=== PATIENT | female | born 1955 ===

== ENCOUNTER 2017-09-10 06:03 | Inpatient (IN) | payer MEDICARE, OTHER ==
[2017-09-02 10:59] VITALS: BMI 31.6
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
[2017-09-10] MEDS ORDERED: Absorbable Gelatin Sponge Size 100 ONE (07:31)
[2017-09-10] MEDS ORDERED: Bupivacaine HCl 0.5% PF (10 ml) Inj ONE ×3 (07:32)
[2017-09-10] MEDS ORDERED: Thrombin Topical 5,000 IU Spray Kit ONE (07:33)
[2017-09-10] MEDS ORDERED: Propofol 10 mg/ml Inj (20 ML) ONE ×3 (07:41→11:20)
[2017-09-10] MEDS ORDERED: Midazolam 2 MG/2 ML VIAL ONE (07:41)
[2017-09-10] MEDS ORDERED: Rocuronium 10 mg/ml (5 ml) ONE (07:41)
[2017-09-10] MEDS ORDERED: Remifentanil 1 mg/3 ml Vial IV ONE (07:46)
[2017-09-10] MEDS ORDERED: Propofol 10 mg/ml 1,000 MG/100 ML VIAL ONE ×2 (07:47)
[2017-09-10] MEDS ORDERED: Bupivacaine Liposomal Inj 20 ml INFIL ONE (07:47)
[2017-09-10] MEDS ORDERED: Bacitracin Ointment 30 GM TUBE ONE (07:52)
[2017-09-10] MEDS ORDERED: Vancomycin 1 g Inj ONE (07:52)
[2017-09-10] MEDS ORDERED: Sodium Chloride 0.9% 40 ML IV ONE (07:52)
[2017-09-10] MEDS ORDERED: Bacitracin 50,000 UNIT in Sodium Chloride 0.9% Irrig 1,000 ML IR SCH (08:00)
[2017-09-10] MEDS ORDERED: Lidocaine 1%/Epinephrine 1:100000 30 ml vial IJ ONE ×2 (08:00)
[2017-09-10] MEDS ORDERED: Phenylephrine 10 mg/ml Inj ONE (08:03)
[2017-09-10] MEDS ORDERED: Vancomycin 1 gm/D5W 200 ml 1 GM/200 ML BAG IVPB ONE (08:22)
[2017-09-10] MEDS ORDERED: Lactated Ringer's 1,000 ML IV ONE ×5 (09:15→10:00)
[2017-09-10] MEDS ORDERED: Labetalol 25mg/5ml Syringe ONE (13:08)
[2017-09-10] MEDS ORDERED: Morphine 4 MG/ML VIAL ONE (13:08)
[2017-09-10] MEDS ORDERED: DiphenhydrAMINE 50 mg/ml Inj IVP PRN (13:26)
[2017-09-10] MEDS ORDERED: Morphine Monoject Barrel PCA 1mg/ml IV PRN (13:26)
[2017-09-10] MEDS: HYDROmorphone 0.5 mg/0.5 ml ISec IVP PRN ×3 (14:35→15:55)
--- NOTE | 2017-09-10 14:35 | RAD ---
PROCEDURE: Intraoperative Fluoroscopy. HISTORY: LUMBAR STENOSIS,DISC DISPLACEMENT FINDINGS: Fluoroscopic assistance was provided for lumbar laminectomy and fusion. Total fluoroscopic time (continuous mode) utilized during the procedure: 52.2 seconds. Please refer to the operative report 4.0
[2017-09-10] MEDS: Potassium Ch 20mEq in D5-1/2NS 1,000 ML IV SCH (15:10)
[2017-09-11] MEDS: Potassium Ch 20mEq in D5-1/2NS 1,000 ML IV SCH ×3 (03:25→16:42)
--- NOTE | 2017-09-11 09:28 | CP.PCM.PN ---
Subjective - Date & Time of Evaluation Date of Evaluation: 09/11/17 Time of Evaluation: 09:26 - Subjective Subjective: POD 1 doing well c/o inc pain 5/ Ble's dsg c and d P oob phys tx cont [employer] Objective - Vital Signs/Intake and Output Vital Signs (last 24 hours): Temp Pulse Resp BP Pulse Ox 98.1 F 116 H 22 132/77 93 L 09/11/17 07:25 09/11/17 07:25 09/11/17 07:25 09/11/17 07:25 09/11/17 07:25 Intake and Output: 09/11/17 09/11/17 06:59 18:59 Intake Total 450 Output Total 475 Balance -25 - Medications Medications: Current Medications Acetaminophen (Tylenol 325mg Tab) 650 mg PO Q6 PRN PRN Reason: Fever >100.4 F Diphenhydramine HCl (Benadryl) 25 mg IVP Q6 PRN PRN Reason: Itching / Pruritus Docusate Sodium (Colace) 100 mg PO BID [facility] Last Admin: 09/10/17 19:38 Dose: 100 mg Ferrous Sulfate (Feosol) 325 mg PO DAILY [facility] Potassium Chloride/Dextrose/Sod Cl (Potassium Chl 20 Meq In D5-1/2ns) 1,000 mls @ 90 mls/hr IV .Q11H7M [facility] Last Admin: 09/11/17 04:21 Dose: 90 mls/hr Metoclopramide HCl (Reglan) 5 mg IVP Q6H PRN PRN Reason: Nausea/Vomiting Morphine Sulfate/Sodium Chloride (Morphine Data Integrity Analyst Monoject Barrel) 20 mg IV Q4H PRN; Protocol PRN Reason: Pain, severe (8-10) Stop: 09/11/17 13:26 Last Admin: 09/10/17 15:10 Dose: 20 mg Ondansetron HCl (Zofran Inj) 4 mg IVP DAILY@ONCE PRN PRN Reason: Nausea/Vomiting Ondansetron HCl (Zofran Inj) 4 mg IVP Q8H PRN PRN Reason: Nausea/Vomiting
[2017-09-11] MEDS ORDERED: Morphine Monoject Barrel PCA 1mg/ml IV PRN (14:54)
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
--- NOTE | 2017-09-12 12:01 | CP.PCM.PN ---
Subjective - Date & Time of Evaluation Date of Evaluation: 09/12/17 Time of Evaluation: 12:00 - Subjective Subjective: Pt doing well usual op site pain starting to ambulate c/o some numbnewss in feet exam st 5/5 no dec to pin ojk to transfer o rehab when bed available Objective - Vital Signs/Intake and Output Vital Signs (last 24 hours): Temp Pulse Resp BP Pulse Ox 98.7 F 109 H 20 138/75 95 09/12/17 07:25 09/12/17 07:25 09/12/17 07:25 09/12/17 07:25 09/12/17 07:25 Intake and Output: 09/12/17 09/12/17 06:59 18:59 Intake Total 2075 Output Total 1350 Balance 725 - Medications Medications: Current Medications Acetaminophen (Tylenol 325mg Tab) 650 mg PO Q6 PRN PRN Reason: Fever >100.4 F Diphenhydramine HCl (Benadryl) 25 mg IVP Q6 PRN PRN Reason: Itching / Pruritus Last Admin: 09/11/17 22:42 Dose: 25 mg Docusate Sodium (Colace) 100 mg PO BID [facility] Last Admin: 09/12/17 10:31 Dose: 100 mg Ferrous Sulfate (Feosol) 325 mg PO DAILY [facility] Last Admin: 09/12/17 10:31 Dose: 325 mg Potassium Chloride/Dextrose/Sod Cl (Potassium Chl 20 Meq In D5-1/2ns) 1,000 mls @ 90 mls/hr IV .Q11H7M [facility] Last Admin: 09/11/17 16:42 Dose: 90 mls/hr Metoclopramide HCl (Reglan) 5 mg IVP Q6H PRN PRN Reason: Nausea/Vomiting Morphine Sulfate/Sodium Chloride (Morphine Door To Door Selling Distributor Monoject Barrel) 1 mg IV Q4H PRN ; Protocol PRN Reason: Pain, severe (8-10) Last Admin: 09/11/17 15:11 Dose: 1 mg Ondansetron HCl (Zofran Inj) 4 mg IVP DAILY@ONCE PRN PRN Reason: Nausea/Vomiting Ondansetron HCl (Zofran Inj) 4 mg IVP Q8H PRN PRN Reason: Nausea/Vomiting
[2017-09-12] MEDS: Oxycodone/Acetaminophen 5/325 mg Tab PO PRN ×2 (12:49→18:04)
[2017-09-12] MEDS: oxyCODONE 20 mg ER Tab (oxyCONTIN) PO SCH (21:43)
[2017-09-13] MEDS: Oxycodone/Acetaminophen 5/325 mg Tab PO PRN ×2 (05:46→13:15)
[2017-09-13] MEDS: oxyCODONE 20 mg ER Tab (oxyCONTIN) PO SCH ×2 (09:32→21:52)
--- NOTE | 2017-09-13 14:38 | CP.PCM.PN ---
Subjective - Date & Time of Evaluation Date of Evaluation: 09/13/17 Time of Evaluation: 14:37 - Subjective Subjective: POD 3 c/o n/v some dysethesia r leg ambulating with PT neuro intact await tr to rehab Objective - Vital Signs/Intake and Output Vital Signs (last 24 hours): Temp Pulse Resp BP Pulse Ox 98 F 98 H 19 134/77 96 09/13/17 07:20 09/13/17 07:20 09/13/17 07:20 09/13/17 07:20 09/13/17 07:20 Intake and Output: 09/13/17 09/13/17 06:59 18:59 Intake Total 360 Output Total 1000 Balance -640 - Medications Medications: Current Medications Acetaminophen (Tylenol 325mg Tab) 650 mg PO Q6 PRN PRN Reason: Fever >100.4 F Diphenhydramine HCl (Benadryl) 25 mg IVP Q6 PRN PRN Reason: Itching / Pruritus Last Admin: 09/11/17 22:42 Dose: 25 mg Docusate Sodium (Colace) 100 mg PO BID [facility] Last Admin: 09/13/17 09:33 Dose: 100 mg Ferrous Sulfate (Feosol) 325 mg PO DAILY [facility] Last Admin: 09/13/17 09:31 Dose: 325 mg Metoclopramide HCl (Reglan) 5 mg IVP Q6H PRN PRN Reason: Nausea/Vomiting Ondansetron HCl (Zofran Inj) 4 mg IVP DAILY@ONCE PRN PRN Reason: Nausea/Vomiting Ondansetron HCl (Zofran Inj) 4 mg IVP Q8H PRN PRN Reason: Nausea/Vomiting Oxycodone HCl (Oxycontin Extended Release Tab) 20 mg PO Q12 [facility] Last Admin: 09/13/17 09:32 Dose: 20 mg Oxycodone/Acetaminophen (Percocet 5/325 Mg Tab) 1 tab PO Q4H PRN PRN Reason: Pain, Mild (1-3) Stop: 09/15/17 12:16 Last Admin: 09/13/17 13:15 Dose: 1 tab
[2017-09-13] MEDS ORDERED: Magnesium Hydroxide Susp 30 ml UD PO ONE ×2 (16:00→17:45)
[2017-09-14] MEDS: Oxycodone/Acetaminophen 5/325 mg Tab PO PRN (06:41)
[2017-09-14] MEDS ORDERED: Bacitracin Ointment 30 GM TUBE TOP SCH (10:00)
[2017-09-14] MEDS: oxyCODONE 20 mg ER Tab (oxyCONTIN) PO SCH ×2 (10:00→22:00)
[2017-09-14] MEDS: Bacitracin Ointment 30 GM TUBE TOP SCH (10:00)
[2017-09-15] MEDS: Oxycodone/Acetaminophen 5/325 mg Tab PO PRN (04:35)
[2017-09-15] MEDS: oxyCODONE 20 mg ER Tab (oxyCONTIN) PO SCH ×2 (10:07→22:53)
[2017-09-15] MEDS: Bacitracin Ointment 30 GM TUBE TOP SCH (10:08)
--- NOTE | 2017-09-15 11:24 | CP.PCM.PN ---
Subjective - Date & Time of Evaluation Date of Evaluation: 09/15/17 Time of Evaluation: 11:23 - Subjective Subjective: POD 5 ambulating to br still c/o lack bm pain ok neuro stable P trans to rehab am fleet enema Objective - Vital Signs/Intake and Output Vital Signs (last 24 hours): Temp Pulse Resp BP Pulse Ox 97.9 F 93 H 20 139/79 94 L 09/15/17 00:00 09/15/17 00:00 09/15/17 00:00 09/15/17 00:00 09/15/17 00:00 Intake and Output: 09/15/17 09/15/17 06:59 18:59 Intake Total 240 Balance 240 - Medications Medications: Current Medications Acetaminophen (Tylenol 325mg Tab) 650 mg PO Q6 PRN PRN Reason: Fever >100.4 F Bacitracin (Bacitracin) 0 gm TOP DAILY [facility] Last Admin: 09/15/17 10:08 Dose: 1 appl Bisacodyl (Dulcolax) 10 mg [place] Q12H PRN PRN Reason: Constipation Last Admin: 09/14/17 11:26 Dose: 10 mg Diphenhydramine HCl (Benadryl) 25 mg IVP Q6 PRN PRN Reason: Itching / Pruritus Last Admin: 09/11/17 22:42 Dose: 25 mg Docusate Sodium (Colace) 100 mg PO BID [facility] Last Admin: 09/15/17 10:08 Dose: 100 mg Ferrous Sulfate (Feosol) 325 mg PO DAILY [facility] Last Admin: 09/15/17 10:08 Dose: 325 mg Metoclopramide HCl (Reglan) 5 mg IVP Q6H PRN PRN Reason: Nausea/Vomiting Last Admin: 09/13/17 14:49 Dose: 5 mg Ondansetron HCl (Zofran Inj) 4 mg IVP DAILY@ONCE PRN PRN Reason: Nausea/Vomiting Ondansetron HCl (Zofran Inj) 4 mg IVP Q8H PRN PRN Reason: Nausea/Vomiting Oxycodone HCl (Oxycontin Extended Release Tab) 20 mg PO Q12 [facility] Last Admin: 09/15/17 10:07 Dose: 20 mg Oxycodone/Acetaminophen (Percocet 5/325 Mg Tab) 1 tab PO Q4H PRN PRN Reason: Pain, Mild (1-3) Stop: 09/15/17 12:16 Last Admin: 09/15/17 04:35 Dose: 1 tab Sodium Phosphate (Fleet Enema) 135 ml [place] Q24H PRN PRN Reason: Constipation Last Admin: 09/15/17 03:40 Dose: 135 ml
[2017-09-15] MEDS: Aluminum Hydroxide/Magnesium Hydroxide Susp (30 mL) PO PRN (18:03)
[2017-09-16] MEDS ORDERED: Phenylephrine 10 mg/ml Inj ONE (08:01)
[2017-09-16] MEDS: oxyCODONE 20 mg ER Tab (oxyCONTIN) PO SCH ×2 (09:12→22:03)
[2017-09-16] MEDS: Bacitracin Ointment 30 GM TUBE TOP SCH (09:42)
--- NOTE | 2017-09-16 10:00 | CP.PCM.PN ---
Subjective - Date & Time of Evaluation Date of Evaluation: 09/16/17 Time of Evaluation: 10:00 - Subjective Subjective: stable awaiting rehab transfer Objective - Vital Signs/Intake and Output Vital Signs (last 24 hours): Temp Pulse Resp BP Pulse Ox 98.8 F 95 H 20 150/74 95 09/16/17 07:15 09/16/17 07:15 09/16/17 07:15 09/16/17 07:15 09/16/17 07:15 Intake and Output: 09/16/17 09/16/17 06:59 18:59 Intake Total 510 Balance 510 - Medications Medications: Current Medications Acetaminophen (Tylenol 325mg Tab) 650 mg PO Q6 PRN PRN Reason: Fever >100.4 F Al Hydrox/Mg Hydrox/Simethicone (Maalox 30 Ml) 30 ml PO Q6 PRN Last Admin: 09/15/17 18:03 Dose: 30 ml Bacitracin (Bacitracin) 0 gm TOP DAILY [facility] Last Admin: 09/16/17 09:42 Dose: 1 appl Bisacodyl (Dulcolax) 10 mg [place] Q12H PRN PRN Reason: Constipation Last Admin: 09/16/17 05:18 Dose: 10 mg Diphenhydramine HCl (Benadryl) 25 mg IVP Q6 PRN PRN Reason: Itching / Pruritus Last Admin: 09/11/17 22:42 Dose: 25 mg Docusate Sodium (Colace) 100 mg PO BID [facility] Last Admin: 09/15/17 18:04 Dose: Not Given Ferrous Sulfate (Feosol) 325 mg PO DAILY [facility] Last Admin: 09/16/17 09:13 Dose: 325 mg Metoclopramide HCl (Reglan) 5 mg IVP Q6H PRN PRN Reason: Nausea/Vomiting Last Admin: 09/13/17 14:49 Dose: 5 mg Ondansetron HCl (Zofran Inj) 4 mg IVP DAILY@ONCE PRN PRN Reason: Nausea/Vomiting Ondansetron HCl (Zofran Inj) 4 mg IVP Q8H PRN PRN Reason: Nausea/Vomiting Oxycodone HCl (Oxycontin Extended Release Tab) 20 mg PO Q12 [facility] Last Admin: 09/16/17 09:12 Dose: 20 mg Sodium Phosphate (Fleet Enema) 135 ml [place] Q24H PRN PRN Reason: Constipation Last Admin: 09/16/17 03:21 Dose: 135 ml
[2017-09-16] MEDS ORDERED: Magnesium Citrate Oral SOL (300 ml) PO ONE (13:26)
[2017-09-16] MEDS: Aluminum Hydroxide/Magnesium Hydroxide Susp (30 mL) PO PRN (15:22)
[2017-09-16] MEDS ORDERED: Oxycodone/Acetaminophen 5/325 mg Tab PO ONE (23:45)
[2017-09-17] MEDS: Bacitracin Ointment 30 GM TUBE TOP SCH (09:10)
[2017-09-17] MEDS: oxyCODONE 20 mg ER Tab (oxyCONTIN) PO SCH ×2 (10:55→22:17)
[2017-09-18 01:35] VITALS: O2SAT 95
[2017-09-18] MEDS ORDERED: Oxycodone/Acetaminophen 5/325 mg Tab PO ONE (06:15)
[2017-09-18 08:50] VITALS: BP 154/73; PULSE 85; RESP 18; TEMP 97.4
[2017-09-18] MEDS: oxyCODONE 20 mg ER Tab (oxyCONTIN) PO SCH (09:21)
--- NOTE | 2017-09-19 22:04 | OP ---
PROCEDURE DATE: 09/10/2017 PREOPERATIVE DIAGNOSES: 1. Lumbar disc herniation and derangement, L4-L5, L5-S1. 2. Spinal stenosis, L3-L4. POSTOPERATIVE DIAGNOSES: 1. Lumbar disc herniation and derangement, L4-L5, L5-S1. 2. Spinal stenosis, L3-L4. OPERATION: 1. L4-L5 and L5-S1 posterior lumbar interbody and lateral fusion. 2. Use of intervertebral devices. 3. Use of segmental spinal instrumentation. 4. Decompressive laminectomy, L3-L4. 5. Use of autograft by means of iliac bone marrow aspiration. CO-SURGEONS: Dr. Marquise Pang and Dr. Bakari Archuleta ANESTHESIA: General endotracheal tube intubation. DESCRIPTION OF PROCEDURE: The patient was brought to the operating room and general anesthesia was achieved. Spinal cord monitoring leads were placed throughout the patient's body while intravenous antibiotics were administered. Intraoperative monitoring was done by master hearth technician in the room and remote monitoring was done by physician as well. Once the antibiotics had been administered, a Gar catheter was inserted and sequential compression boots were placed each on the patient's legs. The patient was then gently transferred onto the operating table and placed prone on the David frame, keeping the breasts and abdomen free from pressure anteriorly. Care was taken to protect the elbows and knees from pressure point. A sterile drape was used to seal off the patient's peroneal region from the operative field. Her back was scrubbed and then sterilely prepped and draped. Lidocaine with epinephrine was used to infiltrate the site for the incision as located under fluoroscopy. An incision was then made sharply in the midline and takedown subcutaneous tissue using sharp blunt dissection. Hemostasis was achieved using electrocautery. The fascia was incised and the muscles and fascial strip off the spinous processes and lamina out to the level of the transverse processes on each side at L4 and L5 as well as the sacral ala. The soft tissue attachments were cleared using electrocautery and Wilder elevators. Tissue was then held back using large Gelpi retractors. Fluoroscopic views confirm we were at the appropriate levels. A Leksell rongeur was then used to remove the spinous processes and thin down the lamina and the laminectomy was carried out in the caudad and cephalad fashion. This was done centrally and then laterally to each side. Foraminotomies were done until we could easily pass and tool. A fair amount of lateral recess stenosis noted at the L3-L4 level, but again, once the soft tissue was removed, we could easily pass the and tool. At the L4-L5 and L5-S1 levels, we identified the disc space and made certain the laminectomies were carried out lateral enough that we could easily pass a broach, indicative of enough space to subsequently insert the intervertebral devices. Hemostasis was achieved with bipolar cautery as well as thrombinated Gelfoam powder. At that time, a trocar was placed in the posterior right ileum and 120 mL of bone marrow aspirate was obtained. Thrombinated Gelfoam powder was used for hemostasis at the donor site. The marrow aspirate was then sterilely passed off to the master hearth technician who processed it to the harvest system and returned the collected mesenchymal stem cells. These were then used to soak strips and cubes of Conform sponge as well as process through the IC chamber. The patient's laminar bone along with the IC chamber bone and Optium putty were combined to create a bone grafting substrate. We then proceeded with the interbody fusion. The disc space at L5-S1 was incised and disc material removed using pituitary rongeur and endplate patricia up to and including a size 11. Ring and spoon curettes were used to remove any remaining tissue from the endplates. In a similar fashion, we then incised the annulus on the right side and removed any remaining disc material with the pituitary rongeur, the endplate patricia as well as the ring and spoon curettes. The marrow-soaked cubes of Conform sponge along with bone grafting substrate were then packed into the disc space and a 9 x 11 graft package was tamped into place and countersunk. We moved back to the left side where in a similar fashion more of the bone graft substrate along with the marrow-soaked cubes were put into the disc space and another 9 x 11 graft package tamped and then countersunk. We then moved to the L4-L5 level which had a little more collapse. The annulus was incised and again disc material removed from each side using the same technique with the pituitary rongeur, the endplate shaver up to and including a size 9, as well as the ring and spoon curettes. More of the bone grafting substrate was packed into the disc space along with marrow-soaked cubes and 9 x 9 graft packages were tamped into place and countersunk on each side. Stimulation of the nerve root was done and it demonstrated we had correct laterality for the monitoring. We then proceeded with the posterolateral fusion part of the procedure. A high speed drill was used to decorticate the L4-L5 and L5-S1 facet joints on each side as well as the L4 and L5 transverse processes along with sacral ala on each side. Under fluoroscopic guidance, the high speed drill was used to create the entry point for the right L4 pedicle. The gearshift tool created the channel through the pedicle and the bone integrity was confirmed with the ball tip probe. A 6.0 x 50 mm EXPEDIUM screw was then inserted. Same technique was used on the left side at the L4 level with the gearshift tool and the ball tip probe and another 50 mm x 6.0 screw was inserted. Stimulation of the gearshift tool on each side as well as the shank and top of each screw revealed no electrophysiologic abnormalities. We moved down to the L5 level where again under fluoroscopic guidance the drill was used to create an entry point for the gearshift tool which was then used to create the channel through the pedicle. Once the bone integrity was confirmed with the ball tip probe, another 50 mm x 6.0 screw was inserted. Same technique was used on the left side and again, a same 6.0 x 50 mm screw was placed. Stimulation again revealed no electrophysiologic abnormalities. We moved to the sacral level and placed temporary renuka and the L4 and L5 screws on each side to lineup the best entry point and coordinated with fluoroscopy in terms of the level of the sacrum. The drill was used to create the entry point on each side and gearshift was used to create the channel for the screw on each side. Again, ball tip probe confirmed bony integrity and 7.0 x 40 mm EXPEDIUM screws were inserted on each side. AP and lateral fluoroscopic view showed excellent position of the hardware. A 65-mm pre-cut lordotic rods were used to connect the three screws on each side and the caps were placed and appropriately tightened and torqued. The marrow-soaked strips of Conform sponge along with the grafting substrate was then packed lateral to the renuka to bridge the decorticated transverse processes to the sacral ala. The midline was irrigated and inspected for any debris. Hemostasis was achieved with bipolar cautery as well as thrombinated Gelfoam powder. A large piece of solid Gelfoam was used to cover the exposed neural elements. An A6 cross link was then used to connect the two rods to add rotational stability. Final AP and lateral fluoroscopic view showed excellent position of the hardware as well as the intervertebral devices. The wound was closed in layers with interrupted sutures of 0 Vicryl for the muscle and the fascia. The subcutaneous tissue was copiously irrigated with antibiotic solution. A 20 mL of Exparel diluted with 20 mL of saline was injected in the paraspinal muscles along with 20 mL of 0.5% Marcaine. The subcutaneous tissue was closed in layers with interrupted sutures of 2-0 Vicryl and the skin was approximated with derek. Bacitracin ointment and sterile dressing were applied. The patient was gently transferred onto her bed in the supine position. She was awakened and extubated. She was taken to recovery room in stable condition having tolerated the procedure well. Estimated blood loss was 800 mL. She received 2500 mL of Crystalloid during the operation. She also received 375 mL back from the Cell Saver and had urine output of 200 mL. Marquise Pang MD Bakari Archuleta MD
== END 2017-09-18 11:59 | DRG 460 ==
LOC: C.9S 06:03 → C.6T 17:20
PROVIDERS: ADMIT Neurological Surgery; ATTEND Neurological Surgery
PROC: 0SB40ZZ Excision of Lumbosacral Disc, Open Approach (ICD-10-PCS; 2017-09-10)
PROC: 0QU Lower Bones, Supplement (ICD-10-PCS; 2017-09-10)
PROC: 0QB23ZZ Excision of Right Pelvic Bone, Percutaneous Approach (ICD-10-PCS; 2017-09-10)
PROC: 00NY0ZZ Release Lumbar Spinal Cord, Open Approach (ICD-10-PCS; 2017-09-10)
PROC: 0SG30AJ Fusion of Lumbosacral Joint with Interbody Fusion Device, Posterior Approach, Anterior Column, Open Approach (ICD-10-PCS; principal; 2017-09-10 07:45)
DX: M51.17 Intervertebral disc disorders with radiculopathy, lumbosacral region (principal); Z88.0 Allergy status to penicillin